=== PATIENT | female | born 1945 | race Caucasian/White ===

== ENCOUNTER 2017-01-28 07:59 | Emergency (ER) | payer MEDICAID, MEDICARE ==
[~2017-01-28] VITALS: Ht 157.5 cm; Wt 77.7 kg
[2017-01-28 08:02] VITALS: BP 129/86; PULSE 64; RESP 18; O2SAT 97
--- NOTE | 2017-01-28 08:08 | ED.REPORT ---
HPI-Abd Pain F 40 and Over Date of Service Jan 28, 2017 ED Provider: Dr. Cole The pt is a 71 y/o female with a hx of HTN who presents to the ED complaining of periumbilical abdominal pain, onset a week ago. The pt had a hernia repair 3 weeks ago. She then had a seroma drained. She believes the fluid is building up again. She denies constipation, fever, chills, and vomiting. Nursing Notes Stated Complaint: ABDOMINAL ISSUE Chief Complaint: Female Abdominal Pain Nursing Notes Reviewed: Yes Allergies: Coded Allergies: Benzodiazepines (Verified Allergy, Severe, blackouts, 04/01/09) Contrast Media (Verified Allergy, Severe, RESP DISTRESS, 04/07/08) prednisone (Verified Allergy, Severe, 01/28/17) Adhesives (Verified Adverse Reaction, Severe, blisters, rash, 10/06/09) TAPE (Verified Adverse Reaction, Severe, blisters, 10/06/09) Uncoded Allergies: CORTISONE (Allergy, Severe, 04/01/09) Contrast Media (Allergy, Severe, RESP DISTRESS, 06/14/05) Cortisone (Allergy, Severe, 06/14/05) ADRENALS (Allergy, Unknown, 06/14/05) CORTISONE,PREDNISONE (Allergy, Unknown, 06/14/05) GLUCOCORTICOIDS (Ingr Allergy) (Allergy, Unknown, Y, 06/14/05) NKFA (Allergy, Unknown, 06/14/05) PREDNISONE (Generic Allergy) (Allergy, Unknown, Y, 06/14/05) ADRENALS (Class ADR) (Adverse Reaction, Unknown, Y, 06/14/05) CORTISONE ACETATE (Generic ADR) (Adverse Reaction, Unknown, Y, 06/14/05) HYPERTENSION GLUCOCORTICOIDS (Ingr ADR) (Adverse Reaction, Unknown, Y, 06/14/05) General Time Seen by MD: 08:07 Chief Complaint Abdominal pain Hx Obtained From: Patient Arrived By: Walk-in Sudden in Onset?: Yes Onset Occurred: Yesterday Symptom Duration: Since onset Location: : Periumbilical Quality: Painful Radiation: : Does not radiate Severity: Current: Moderate Severity: Maximum: Moderate Recent Healthcare: No recent doctor visit Past Medical History Past Medical History Reports: Hypertension Past Surgical History Umbilical hernia repair Multiple abdominal surgeries Smoking History Current Every Day Smoker (half a pack) Ambulatory Status Independent Review of Systems Constitutional: Denies: Chills, Fever GI: Reports: Abdominal pain, Denies: Constipation, Vomiting Complete sys rev & neg: except as marked. Physical Exam Vital Signs Vital Signs (First) Date Time Temp Pulse Resp B/P Pulse Ox O2 Delivery O2 Flow Rate FiO2 01/28/17 08:02 36.7 64 18 129/86 97 Room Air Initial VS: Reviewed Head / Eyes: Atraumatic, Normocephalic Neck: Supple, Non-tender, Full range of motion Extremities: Vascular intact, Neuro intact, No swelling, No tenderness Skin: Warm, Dry, No cyanosis Neurologic: Alert, Oriented, Nonfocal General/Constitutional: Awake, Alert, Cooperative Distress / Hydration: Positive: Distress mild Respiratory / Chest: Atraumatic, Breath sounds NL, Breath sounds = bilat, No respiratory distress, No rales, No rhonchi, No wheezing Cardiovascular: Heart rate NL, Regular rhythm, Heart sounds NL, No gallop, No murmurs, No rubs Abdomen: Atraumatic, Soft, BS normoactive Large ventral mass which feels like intestines. It is partially reducible. Back: Atraumatic, Full range of motion, Painless range of motion Re-Eval/Medical Decision Med Decision/Clinical Course This woman's abdominal incision appears relatively new consistent with her report of having had surgery just 3 weeks ago. There is no evidence of external dermal infection. She has an obvious hernia above the umbilicus. I made a prolonged attempt to reduce this hernia and was partially successful though not completely. She reports no symptoms of obstruction or infection and therefore think outpatient follow-up is appropriate and reasonable. She would like to travel back to [place] where she had the surgery 3 weeks ago and see the surgeon who operated on her which to me seems the most appropriate approach. I instructed her to return immediately for signs of obstruction or infection such as fever, excessive vomiting or pain out of control. Re-Evaluation/Progress : Time of Eval: 08:19 Re-Evaluation/Progress Note: The pt states she'd like to return to [place] to see the surgeon who operated on her. Discussed diagnosis and plan to discharge. Pt understands and agrees with the plan. F/U instruction and RTER warning given. All questions addressed. Counseled Regarding: Diagnosis, Need for follow-up, When/why to return to ED Discharge & Departure Primary Impression: Abdominal wall hernia Disposition: Home Patient Instructions: Incisional Hernia (GEN) Additional Instructions: No evidence of obstruction or infection at this time. Follow-up right away if you develop vomiting, increased pain or fever. Otherwise, follow-up with the surgeon who did the operation in [place] as soon as you are able. Referrals: Elbert Magaña MD (PCP) Scribe Attestation Portions of this note were transcribed by Shmuel Casillas. I,, personally performed the history,physical exam and medical decision-making;I reviewed and confirmed the accuracy of the information in the transcribed note. Signed by Kriss Gordon. 01/28/17 copies to: Elbert Magaña MD, Kirk H MD Jan 28, 2017 08:08 Shmuel Casillas Jan 28, 2017 08:19
[2017-01-28 08:36] VITALS: PULSE 74; RESP 16
== END 2017-01-28 08:37 | disposition home or self-care (01) ==
LOC: SED 08:29
DX: K43.9 Ventral hernia without obstruction or gangrene (principal); I10 Essential (primary) hypertension; F17.200 Nicotine dependence, unspecified, uncomplicated; Z98.890 Other specified postprocedural states; Z88.1 Allergy status to other antibiotic agents; Z88.8 Allergy status to other drugs, medicaments and biological substances; Z91.041 Radiographic dye allergy status; Z91.048 Other nonmedicinal substance allergy status